=== PATIENT | female | born 1955 | race Caucasian/White ===

== ENCOUNTER → 2017-02-18 | Outpatient (CLI) | payer OTHER ==
[2017-02-13 12:02] LABS: EST GLOM FILT AFRICAN AMERICAN > 60 ml/min
[~2017-02-18] MED LIST: GLYBURIDE5 MG PO; LANTUS100 U/ML SC; LISINOPRIL2.5 MG PO; METFORMIN500 MG PO; MEVACOR10 MG PO; NAPROSYN500 MG PO; NEURONTIN100 MG PO; NORCO 325 MG-51 TAB PO; NOVOLOG 70/30 M10 ML SC; PERCOCET 325 MG1 TA2 PO; REQUIP1 MG PO; XANAX0.25 MG PO; ZOLOFT50 MG PO
== END | disposition home or self-care (01) ==
LOC: LAB 02-13 11:00 → MRI 02-13 11:00 → LAB 02-13 11:29
PROVIDERS: Internal Medicine
DX: I10 Essential (primary) hypertension (principal); H54.62 Unqualified visual loss, left eye, normal vision right eye; I65.21 Occlusion and stenosis of right carotid artery; M48.02 Spinal stenosis, cervical region

== ENCOUNTER → 2017-05-28 | Outpatient (CLI) | payer OTHER | END | disposition home or self-care (01) | LOC: US 08:04 | DX: R10.13 Epigastric pain (principal) ==

== ENCOUNTER → 2017-06-04 | Outpatient (CLI) | payer OTHER | END | disposition home or self-care (01) | LOC: NM 02:24 | DX: R10.13 Epigastric pain (principal); R14.0 Abdominal distension (gaseous); R11.2 Nausea with vomiting, unspecified; G24.9 Dystonia, unspecified ==

== ENCOUNTER → 2017-07-23 | Outpatient (CLI) | payer OTHER | END | disposition home or self-care (01) | LOC: LAB 08:01 | DX: D68.52 Prothrombin gene mutation (principal) ==

== ENCOUNTER → 2017-11-19 | Outpatient (CLI) | payer OTHER | END | disposition home or self-care (01) | LOC: MRI 12:01 | DX: S83.242D Other tear of medial meniscus, current injury, left knee, subsequent encounter (principal); M94.262 Chondromalacia, left knee; M12.862 Other specific arthropathies, not elsewhere classified, left knee; M25.462 Effusion, left knee; X58.XXXD Exposure to other specified factors, subsequent encounter ==

== ENCOUNTER → 2017-11-20 | Outpatient (CLI) | payer OTHER | END | disposition home or self-care (01) | LOC: RAD 01:22 → MAMMO 14:20 | DX: Z12.31 Encounter for screening mammogram for malignant neoplasm of breast (principal); Z13.820 Encounter for screening for osteoporosis; N95.9 Unspecified menopausal and perimenopausal disorder ==

== ENCOUNTER → 2017-12-31 | Outpatient (CLI) | payer OTHER | END | disposition home or self-care (01) | LOC: ORTHO 02:13 | DX: M17.12 Unilateral primary osteoarthritis, left knee (principal) ==

== ENCOUNTER → 2018-01-22 | Outpatient (CLI) | payer OTHER ==
[~2018-01-22] MED LIST changes: +ELIQUIS5 M1 PO; +GLUCOTROL10 MG PO; +IMDUR SA30 MG PO; +LEXAPRO20 MG PO; +LOPID600 M1 PO; +NATURE'S BLEND F1 MG PO; +NORVASC5 MG PO; +OS-CAL 500+D31 EAC1 PO; -REQUIP1 MG PO; +REQUIP3 M1 PO; +RESTORIL30 M1 PO; +[UNRECOGNIZED DRUG - OTHER] SC
[2018-01-22 11:23] LABS: BASO # 0.1 10*3/uL (0.0-0.1); EOS # 0.3 10*3/uL (0.0-0.4); EOS % 2.7 % (1.0-4.0); HEMATOCRIT 48.3 % (37.0-47.0); HEMOGLOBIN 15.7 g/dl (12.0-16.0); LYMPH # 3.2 10*3/uL (1.3-4.4); MEAN CELL VOLUME 92.9 fl (81.0-99.0); MEAN CORPUSCULAR HGB 30.2 pg (27.0-31.0); MEAN CORPUSCULAR HGB CONC 32.5 g/dl (33.0-37.0); MONO % 8.7 % (3.0-9.0); NEUT # 6.7 10*3/uL (2.3-7.9); NEUT % 59.1 % (47.0-73.0); PLATELET COUNT AUTOMATED 314 10*3/uL (130-400); RED CELL DISTRI WIDTH 14.7 % (0-14.5); WHITE BLOOD COUNT 11.3 10*3/uL (4.8-10.8)
[2018-01-22 11:28] LABS: BILIRUBIN NEGATIVE (NEGATIVE); BLOOD NEGATIVE (NEGATIVE); CLARITY CLEAR (CLEAR); COLOR YELLOW (YELLOW); GLUCOSE NEGATIVE (NEGATIVE); KETONE NEGATIVE (NEGATIVE); LEUKO ESTERASE 2+ (NEGATIVE); NITRITE NEGATIVE (NEGATIVE); PH 6.5 (5.0-9.0); SPECIFIC GRAVITY <= 1.005 (1.005-1.030); UROBILINOGEN 0.2 E.U./dl (0.2-1.0)
[2018-01-22 11:41] LABS: ALBUMIN 4.3 gm/dl (3.1-4.5); ALKALINE PHOSPHATASE 105 U/L (45-117); BUN 8 mg/dl (7-24); CHLORIDE 106 mmol/L (98-107); CREATININE 0.85 mg/dL (0.55-1.02); POTASSIUM 4.3 mmol/L (3.5-5.1); SGOT/AST 10 IU/L (3-35); SGPT/ALT 23 U/L (12-78); SODIUM 139 mmol/L (136-145)
[2018-01-22 11:48] LABS: BACTERIA 1+; EPITHELIAL CELLS TNTC; WBC TNTC wbc/hpf (0-5); YEAST TRACE
== END | disposition home or self-care (01) ==
LOC: LAB 09:02
PROVIDERS: Orthopaedic Surgery
DX: Z01.818 Encounter for other preprocedural examination (principal); S83.242A Other tear of medial meniscus, current injury, left knee, initial encounter; R05 Cough; R09.89 Other specified symptoms and signs involving the circulatory and respiratory systems; E11.9 Type 2 diabetes mellitus without complications; I10 Essential (primary) hypertension; F17.200 Nicotine dependence, unspecified, uncomplicated; X58.XXXA Exposure to other specified factors, initial encounter; Y93.89 Activity, other specified; Y92.89 Other specified places as the place of occurrence of the external cause; Y99.8 Other external cause status

== ENCOUNTER → 2018-01-29 | Day surgery (SDC) | payer OTHER ==
[~2018-01-29] VITALS: Ht 170.1 cm; Wt 78.0 kg
[~2018-01-29] MED LIST changes: +PERCOCET 5-3251 EACH PO; +ZOFRAN4 MG PO
[2018-01-29 07:25] VITALS: BP 120/60
[2018-01-29 08:55] VITALS: BP 134/71
[2018-01-29 09:07] VITALS: BP 146/59
[2018-01-29 09:25] VITALS: BP 126/59
[2018-01-29 09:40] VITALS: BP 113/37
[2018-01-29 09:55] VITALS: BP 146/70
== END | disposition home or self-care (01) ==
LOC: SDC 01-22 09:30
DX: S83.282A Other tear of lateral meniscus, current injury, left knee, initial encounter (principal); S83.242A Other tear of medial meniscus, current injury, left knee, initial encounter; F17.210 Nicotine dependence, cigarettes, uncomplicated; M67.52 Plica syndrome, left knee; M22.42 Chondromalacia patellae, left knee; F41.9 Anxiety disorder, unspecified; F32.9 Major depressive disorder, single episode, unspecified; M19.90 Unspecified osteoarthritis, unspecified site; I10 Essential (primary) hypertension; E11.9 Type 2 diabetes mellitus without complications; Z98.51 Tubal ligation status; X58.XXXA Exposure to other specified factors, initial encounter; Y93.89 Activity, other specified; Y92.89 Other specified places as the place of occurrence of the external cause; Y99.8 Other external cause status

== ENCOUNTER → 2018-02-27 | Outpatient (CLI) | payer OTHER | END | disposition home or self-care (01) | LOC: ORTHO 02:00 → RAD 09:00 → ORTHO 16:28 | DX: M19.032 Primary osteoarthritis, left wrist (principal); M19.031 Primary osteoarthritis, right wrist; M47.892 Other spondylosis, cervical region ==

== ENCOUNTER → 2018-06-16 | Outpatient (CLI) | payer OTHER, MEDICAID ==
[2018-06-16 10:52] LABS: HEMATOCRIT 49.1 % (37.0-47.0); HEMOGLOBIN 15.8 g/dl (12.0-16.0); MEAN CELL VOLUME 94.8 fl (81.0-99.0); MEAN CORPUSCULAR HGB 30.5 pg (27.0-31.0); MEAN CORPUSCULAR HGB CONC 32.2 g/dl (33.0-37.0); RED BLOOD COUNT 5.18 10*6/uL (4.10-5.10); RED CELL DISTRI WIDTH 14.3 % (0-14.5); WHITE BLOOD COUNT 8.8 10*3/uL (4.8-10.8)
[2018-06-16 11:26] LABS: ALBUMIN 4.3 gm/dl (3.1-4.5); BUN 16 mg/dl (7-24); CHLORIDE 107 mmol/L (98-107); CHOLESTEROL 253 mg/dL (<200); CREATININE 0.83 mg/dL (0.55-1.02); POTASSIUM 4.7 mmol/L (3.5-5.1); SGOT/AST 5 IU/L (3-35); SGPT/ALT 22 U/L (12-78); SODIUM 143 mmol/L (136-145); TOTAL PROTEIN 8.3 gm/dL (6.4-8.2); TRIGLYCERIDES 164 mg/dl (<150); VLDL CHOLESTEROL 33 mg/dL (6-40)
[2018-06-16 11:33] LABS: ALKALINE PHOSPHATASE 105 U/L (45-117); FREE T4 0.86 ng/dl (0.76-1.46); HDL CHOLESTEROL 43 mg/dl (40-60); LDL CHOLESTEROL 177 mg/dL (9-159)
[2018-06-16 13:34] LABS: VITAMIN D, 25-HYDROXY 18.1 ng/mL (30-100)
== END | disposition home or self-care (01) ==
LOC: LAB 09:22
PROVIDERS: Internal Medicine
DX: Z13.21 Encounter for screening for nutritional disorder (principal); Z13.1 Encounter for screening for diabetes mellitus; E11.9 Type 2 diabetes mellitus without complications; R79.89 Other specified abnormal findings of blood chemistry; E78.2 Mixed hyperlipidemia; E55.9 Vitamin D deficiency, unspecified; R53.81 Other malaise

== ENCOUNTER 2018-12-10 11:34 | Inpatient (IN) | payer MEDICARE ==
[~2018-12-10] VITALS: Ht 170.1 cm; Wt 84.9 kg
--- NOTE | ~2018-12-10 | WRIGHTHP ---
[place], [place] PATIENT HISTORY AND PHYSICAL EXAM [id number] UNIT #: [id number] ROOM: 415 DOCTOR: VLADIMIR FINNEGAN MD BIRTHDATE: [birth year] DOS: 12/10/2018 HISTORY OF PRESENT ILLNESS: This patient is 63 years old. The patient is very well known to us. She was in the office today for routine appointment. The patient states that she has had some discomfort in the chest when she woke up. It is almost like a bubble in her chest mostly in the midsternal area. She says that if she burps she feels that the discomfort could go away. She has not had any reflux symptoms. She has not had any heartburn. She has not had any shortness of breath, any fever or chills or cough. PAST MEDICAL HISTORY: Significant for: 1. Type 2 diabetes mellitus, poorly controlled. 2. Benign hypertension. 3. Peripheral neuropathy with chronic pain. 4. Spinal stenosis of lumbar. 5. Primary insomnia. 6. Mixed hyperlipidemia. MEDICATIONS: She is on glipizide 10 mg daily, Toujeo 65 daily, Lexapro 20 daily, Nexium 40 daily, Lopid 600 b.i.d., [place] 7.5 twice a day, lisinopril 20 mg daily, Lyrica 75 b.i.d., Requip 3 mg at bedtime, temazepam 30 at bedtime. SOCIAL HISTORY: Quit smoking 2 weeks ago. Denies using any alcohol. PHYSICAL EXAMINATION: GENERAL: She is awake and alert and oriented. VITAL SIGNS: Graphic trend shows a pressure of 147/85, pulse of 90, respirations 20, temperature 98.2. LUNGS: Diminished breath sounds, clear. HEART: Regular. ABDOMEN: Obese, soft, nontender. No rebound tenderness noted over the chest wall. EXTREMITIES: Without any edema. LABORATORY DATA: EKG showed minimal ST elevation in the septal leads. This was done in the office. ASSESSMENT AND PLAN: 1. Precordial chest pain be in a patient with risk factors including smoking, type 2 diabetes mellitus, poorly controlled and hypertension. Because of the EKG changes, the patient will be admitted to rule out myocardial infarction protocol, will be ordered Lovenox has been added along with a consultation with Cardiology and echocardiogram. Troponins come back negative. The patient will be scheduled for a stress test. 2. Benign hypertension, controlled. 3. Type 2 diabetes mellitus, poorly controlled. Continue home medications. [place], [place] PATIENT HISTORY AND PHYSICAL EXAM NAME: STONE BARNETT UNIT #: [id number] ROOM: [facility] DOCTOR: VLADIMIR FINNEGAN MD BIRTHDATE: [birth year] VLADIMIR FINNEGAN MD CM:HISPHYS:PATIENT HISTORY AND PHYSICAL EXAMINATION 1421 1432 VLADIMIR FINNEGAN MD 12/10/18 1433 interface
--- NOTE | ~2018-12-10 | EKG ---
[place], [place] ELECTROCARDIOGRAM REPORT NAME: STONE BARNETT UNIT #: [id number] ROOM: 415 DOCTOR: EPIPHANY DRAFT REPORT BIRTHDATE: [birth year] [facility] Test Date: 2018-12-11 Test Time: 06:48:25 Pat Name: STONE BARNETT Department: Room: 415 1 Gender: F Booking Clerk: Julissa Giraldo : 1955 Requested By: VLADIMIR FINNEGAN Order Number: [id number] Reading MD: Adin Sellers MD Measurements Intervals [place] Rate: 66 P: 3 MN: 154 QRS: -25 QRSD: 95 T: 100 QT: 389 QTc: 408 Interpretive Statements Sinus rhythm Borderline left axis deviation Abnormal R-wave progression, late transition Nonspecific T abnormalities, lateral leads Baseline wander in lead(s) V6 Compared to ECG 12/10/2018 13:03:34 No significant change Electronically Signed On 12-11-2018 19:32:40 PST by Adin Sellers MD CM:EKGRPT:ELECTROCARDIOGRAM REPORT 31 VLADIMIR FINNEGAN MD EPIPHANY DRAFT REPORT VLADIMIR FINNEGAN MD
--- NOTE | ~2018-12-10 | EKG ---
[place], [place] ELECTROCARDIOGRAM REPORT NAME: STONE BARNETT UNIT #: [id number] ROOM: 415 DOCTOR: MARY DRAFT REPORT BIRTHDATE: [birth year] [facility] Test Date: 2018-12-10 Test Time: 13:03:34 Pat Name: STONE BARNETT Department: Room: 415 1 Gender: F Post Secondary Professional: Julissa Giraldo : 1955 Requested By: VLADIMIR FINNEGAN Order Number: [id number] Reading MD: Adin Sellers MD Measurements Intervals [place] Rate: 75 P: 48 TX: 148 QRS: -30 QRSD: 95 T: 81 QT: 367 QTc: 410 Interpretive Statements Sinus rhythm Abnormal R-wave progression, late transition Baseline wander in lead(s) V4 No previous ECG available for comparison Electronically Signed On 12-10-2018 18:03:29 PST by Adin Sellers MD CM:EKGRPT:ELECTROCARDIOGRAM REPORT 1303 1803 VLADIMIR FINNEGAN MD EPIPHBETO DRAFT REPORT VLADIMIR FINNEGAN MD
--- NOTE | ~2018-12-10 | PR ---
[place], [place] PROGRESS NOTE NAME: STONE BARNETT UNIT #: [id number] ROOM: 415 DOCTOR: VLADIMIR FINNEGAN MD BIRTHDATE: [birth year] DOS: 12/11/2018 SUBJECTIVE: The patient is doing well and her discomfort that she had in her midsternal area seems to be a little bit better. OBJECTIVE: VITAL SIGNS: Graphic trend shows a pressure 131/60, pulse of 70, respirations 18, temperature 97.9. LUNGS: Diminished breath sounds, clear. HEART: Regular. ABDOMEN: Obese, soft. EXTREMITIES: Without any edema. ASSESSMENT AND PLAN: 1. Precordial chest pain, ruled out for myocardial infarction. Awaiting stress test. 2. Abnormal EKG with some nonspecific ST-T changes in the septal leads, again ruled out for myocardial infarction. Awaiting the stress test. If the stress is negative, plan is to discharge. 3. Type 2 diabetes mellitus, not very well controlled as an outpatient. Blood sugars 87 here. 4. For her Mixed hyperlipidemia, on lipid lowering medications, which is to be continued. LVADIMIR FINNEGAN MD CM:PNTRANS 0921 1055 VLADIMIR FINNEGAN MD 12/11/18 1055 interface
--- NOTE | ~2018-12-10 | CON ---
[place], [place] REPORT OF CONSULTATION NAME: STONE BARNETT UNIT #: [id number] ROOM: 415 DOCTOR: CHARANJIT FINCH MD BIRTHDATE: [birth year] DOS: HISTORY OF PRESENT ILLNESS: This is a 63-year-old -[place] woman with a history of coronary artery disease. She tells me that Dr. Hardwick had done a heart catheterization on her and was told that she had re-outed one of her vessels presumably occlusion with collaterals. She has longstanding diabetes mellitus type 2, not adequately controlled; essential hypertension; peripheral neuropathy from diabetes mellitus; spinal stenosis of the lumbar spine and also mixed dyslipidemia and smokes 3 packs a week. She has never had a stroke, heart failure, rhythm disorder of the heart. She does have GERD, but no bleeding ulcers. She has never had any kidney problems. Father of brain tumor and mother had some heart problems. She came to the Emergency Department because of 2-3 weeks of lower retrosternal chest pain that would go around the right side into the back. When it came, it had lasted all day and almost occurred on a daily basis with accompanying shortness of breath, but no radiation up into the shoulder or the neck. She did not have any worsening of the symptoms with exertion and no PND, orthopnea, or swelling of the lower extremities. HOME MEDICATIONS: Included apixaban 5 mg b.i.d., amlodipine 5 mg daily, gemfibrozil 600 mg b.i.d., glipizide 10 mg daily, [place] 7.5/325 mg b.i.d., glipizide 10 mg daily, esomeprazole 40 mg daily, escitalopram (Lexapro) 20 mg daily, calcium carbonate, Requip 3 mg at night, temazepam 30 mg at bedtime and also Toujeo 40 units subcutaneous, and insulin lispro. PHYSICAL EXAMINATION: GENERAL: This reveals a patient who is moderately obese. She is pleasant, alert, oriented. She is not in any distress. There is no cyanosis or jaundice. There is no thyromegaly or finger clubbing. VITAL SIGNS: Pulse is regular at 76 beats per minute, blood pressure 147/85. NECK: Normal JVP. No bruit in the neck. HEART: There is no cardiomegaly, no murmurs are present. EXTREMITIES: She had good dorsalis pedis pulses and no edema in the lower extremity. RESPIRATORY: Breath sounds are fairly decent bilaterally with a few adventitious sounds in the left lower zone. Percussion note was normal. ABDOMEN: No bruit. Normal bowel sounds. There is no organomegaly or pulsatile mass. DIAGNOSTIC STUDIES: ECG showed normal sinus rhythm with T-wave inversion in 1 and aVL. Troponin I levels have been normal. IMPRESSION: This patient with multiple risk factors for known coronary artery disease, has symptoms that are somewhat atypical for myocardial ischemia. She has ruled out for acute myocardial infarction and a Lexiscan Cardiolite study is being performed by Dr. Sellers and I will look at her. I will review her angiographic findings at [facility] and if there is abnormality on the nuclear study and it correlates with a previous angiographic [place], [place] REPORT OF CONSULTATION NAME: STONE BARNETT UNIT #: [id number] ROOM: 415 DOCTOR: CHARANJIT FINCH MD BIRTHDATE: [birth year] finding, then she may not require any further workup. I thank you on behalf of Dr. Hardwick for this consult. CHARANJIT FINCH MD CM:CONSTR:REPORT OF CONSULTATION 1050 12/12/18 0915 interface GERMAN HARDWICK MD
[~2018-12-10 11:34] MED LIST changes: -NORCO 325 MG-51 TAB PO; +NORCO 5-325 TA1 EACH PO; +TOUJEO SC; -[UNRECOGNIZED DRUG - OTHER] SC
[2018-12-10 12:10] VITALS: BP 147/85
--- NOTE | 2018-12-10 12:10 | NUR ---
A 63, admitted to , under the services of VLADIMIR Rosenthal MD with a diagnosis of CHEST PAIN EKG CHANGES. Chief complaint is CHEST PAIN. Patient arrived via wheel chair from [place]. Monitor applied. Initial assessment completed. Vital signs taken and recorded. VLADIMIR ROSENTHAL MD notified of admission to the unit. Orders received. See assessment for past medical history, medications and allergies. Patient and/or family oriented to unit. [address] visitation policy reviewed. Clothing/patient valuable form completed. MIKE BROOKE
[2018-12-10] MEDS ORDERED: LYRICA75 M1 PO (12:33)
[2018-12-10] MEDS ORDERED: NEXIUM40 MG PO (12:34)
[2018-12-10] MEDS ORDERED: HUMALOG100 UNIT/1 SQ (12:39)
[2018-12-10] MEDS ORDERED: NORCO 7.5-3251 EACH PO (12:41)
--- NOTE | 2018-12-10 14:23 | NUR ---
DR ROMAN NOTIFIED OF CONSULT.
[2018-12-10 14:43] LABS: BASO # 0.1 10*3/uL (0.0-0.1); EOS # 0.4 10*3/uL (0.0-0.4); EOS % 4.3 % (1.0-4.0); HEMATOCRIT 44.8 % (37.0-47.0); LYMPH # 3.5 10*3/uL (1.3-4.4); LYMPH % 37.8 % (27.0-41.0); MEAN CELL VOLUME 91.8 fl (81.0-99.0); MEAN CORPUSCULAR HGB 30.7 pg (27.0-31.0); MEAN CORPUSCULAR HGB CONC 33.5 g/dl (33.0-37.0); MEAN PLATELET VOLUME 10.1 fl (9.6-12.3); MONO # 0.7 10*3/uL (0.1-1.0); MONO % 7.8 % (3.0-9.0); NEUT # 4.5 10*3/uL (2.3-7.9); NEUT % 48.8 % (47.0-73.0); PLATELET COUNT AUTOMATED 281 10*3/uL (130-400); RED BLOOD COUNT 4.88 10*6/uL (4.10-5.10); RED CELL DISTRI WIDTH 13.7 % (0-14.5); WHITE BLOOD COUNT 9.2 10*3/uL (4.8-10.8)
[2018-12-10 14:59] LABS: ALBUMIN 3.4 gm/dl (3.1-4.5); ALKALINE PHOSPHATASE 92 U/L (45-117); BUN 14 mg/dl (7-24); CHLORIDE 106 mmol/L (98-107); CREATININE 0.84 mg/dL (0.55-1.02); POTASSIUM 4.1 mmol/L (3.5-5.1); SGOT/AST 9 IU/L (3-35); SGPT/ALT 24 U/L (12-78); SODIUM 141 mmol/L (136-145)
[2018-12-10] MEDS ORDERED: NORVASC5 MG PO (15:00)
[2018-12-10] MEDS ORDERED: ELIQUIS5 M1 PO (15:00)
[2018-12-10 16:00] VITALS: BP 157/73
[2018-12-10 20:00] VITALS: BP 158/61
--- NOTE | 2018-12-10 22:00 | NUR ---
PT BLOOD SUGAR OBTAINED, 288. 8 UNITS OF COVERAGE GIVEN PER ORDER. PT ALERT ORIENTED AND PLEASANT WITH STAFF. ALL OTHER HS MEDICATIONS GIVEN. NO COMPLAINTS VOICED BY PT AT THIS TIME. ASSESSMENT COMPLETE. PT AWARE THAT SHE IS NPO AT MIDNIGHT FOR SCHEDULED STRESS TEST IN AM. WILL CONTINUE TO MONITOR. CALL LIGHT IN REACH.
[2018-12-11] VITALS: BP 131/61
[2018-12-11 06:54] LABS: CHOLESTEROL 242 mg/dL (<200); HDL CHOLESTEROL 32 mg/dl (40-60); LDL CHOLESTEROL 163 mg/dL (9-159); TRIGLYCERIDES 237 mg/dl (<150); VLDL CHOLESTEROL 47 mg/dL (6-40)
--- NOTE | 2018-12-11 08:26 | NUR ---
DR FINNEGAN CALLED IN, UNABLE TO COME AND DO STRESS TEST TODAY. REQUESTED FABRIZIO TO COVER.
--- NOTE | 2018-12-11 09:00 | NUR ---
[employer] Operator in to talk to patient. Patient states lives at home with her boyfriend staying with her Friday through Friday and her friend staying with her on Mondays. There are 12 steps in the home. Physician: Dr. Gabby Breaux Pharmacy: [facility] Home health services: none Patient's level of ADLs: INDEPENDENT Patient has working utilities: yes DME: none Follow-up physician's appointment after d/c: she prefers to make her own follow up appt after discharge Does patient want to access PORTAL?: no Discharge plan discussed with patient. She lives at home with her boyfriend staying with her Friday through Friday and her friend staying with her on Mondays. She is independent in her ADLs and ambulation. Discussed home health care services and she denies any home needs at this time. When medically stable she will be discharged to home. LIAM GARCIA
--- NOTE | 2018-12-11 10:46 | NUR ---
PT OFF FLOOR FOR STRESS TEST.
--- NOTE | 2018-12-11 11:45 | NUR ---
INFORMED CONSENT OBTAINED FOR LEXISCAN NUCLEAR STRESS TEST WITH DR. YA. RESTING EKG NSR WITH A RESTING HR OF 61 WITH BP OF 152/68. LUNGS CLEAR WITH DIMINISHED BS. SPO2 OF 96% ON ROOM AIR. PT COMPLETED A 1:00 LEXISCAN PROTOCOL RECEIVING LEXISCAN 0.4 MG IV OVER 10 SECONDS. HAD NO CHEST PAIN OR ANY EKG CHANGES. HAD C/O HEADACHE THAT WAS RELIEVED IN RECOVERY. HAD A PEAK HR OF 107 WITH BP OF 140/62. LAST RECOVERY HR OF 92 WITH BP OF 144/68. AWAITING SCANNING IN STABLE CONDITION.
[2018-12-11 16:00] VITALS: BP 131/63
--- NOTE | 2018-12-11 18:28 | NUR ---
[facility] Discharge instructions reviewed with patient/family. Patient receptive and verbalizes understanding. Follow-up care arranged. Written instructions given to patient/family. RAVI DODSON
[2019-02-26] MEDS ORDERED: TOPROL XL25 MG PO (01:40)
== END 2018-12-11 18:28 | disposition home or self-care (01) | DRG 313 ==
LOC: 5E 11:34 → 4E 11:34
PROVIDERS: ADMIT Internal Medicine
PROC: 3E073KZ Introduction of Other Diagnostic Substance into Coronary Artery, Percutaneous Approach (ICD-10-PCS; principal; 2018-12-11)
PROC: 4A02XM4 Measurement of Cardiac Total Activity, External Approach (ICD-10-PCS; principal; 2018-12-11)
DX: R07.2 Precordial pain (principal); I10 Essential (primary) hypertension; E11.65 Type 2 diabetes mellitus with hyperglycemia; M48.061 Spinal stenosis, lumbar region without neurogenic claudication; E78.2 Mixed hyperlipidemia; E11.42 Type 2 diabetes mellitus with diabetic polyneuropathy; G89.29 Other chronic pain; I25.10 Atherosclerotic heart disease of native coronary artery without angina pectoris; F17.210 Nicotine dependence, cigarettes, uncomplicated; K21.9 Gastro-esophageal reflux disease without esophagitis; Z82.49 Family history of ischemic heart disease and other diseases of the circulatory system; Z80.8 Family history of malignant neoplasm of other organs or systems

== ENCOUNTER 2019-02-25 10:10 | Emergency (ER) | payer MEDICARE ==
[~2019-02-25] VITALS: Ht 170.1 cm; Wt 85.7 kg
[~2019-02-25 10:10] MED LIST changes: +HUMALOG100 UNIT/1 SQ; +LYRICA75 M1 PO; +NEXIUM40 MG PO; +NORCO 7.5-3251 EACH PO
[2019-02-25] MEDS ORDERED: VENTOLIN 02.5 MG/3 M INH (12:45)
[2019-02-25] MEDS ORDERED: ZITHROMAX250 MG PO (12:45)
[2019-02-26] MEDS ORDERED: TOPROL XL25 MG PO (01:40)
== END 2019-02-25 12:54 | disposition home or self-care (01) ==
LOC: ED 10:10
DX: J18.1 Lobar pneumonia, unspecified organism (principal); E11.9 Type 2 diabetes mellitus without complications; F17.200 Nicotine dependence, unspecified, uncomplicated; Z98.51 Tubal ligation status; Z79.899 Other long term (current) drug therapy; Z79.4 Long term (current) use of insulin

== ENCOUNTER → 2019-05-19 | Outpatient (CLI) | payer MEDICARE ==
[~2019-05-19] MED LIST changes: +ASPIRIN CHEWABL81 MG PO; +CEFUROXIME AXE250 MG PO; +Ipratropium Brom3 ML NEB; +JARDIANCE10 MG PO; +PREDNISONE5 MG PO; +TOPROL XL25 MG PO; +TOUJEO SOL300 UNIT/1 SQ; +VENTOLIN 02.5 MG/3 M INH; +ZITHROMAX250 MG PO
== END | disposition home or self-care (01) ==
LOC: ORTHO 01:23
DX: M17.12 Unilateral primary osteoarthritis, left knee (principal); M94.262 Chondromalacia, left knee; M25.462 Effusion, left knee; M79.89 Other specified soft tissue disorders; Z91.81 History of falling

== ENCOUNTER → 2019-06-01 | Outpatient (CLI) | payer MEDICARE | END | disposition home or self-care (01) | LOC: RAD 08:15 | DX: M25.552 Pain in left hip (principal) ==

== ENCOUNTER 2019-08-02 09:58 | Emergency (ER) | payer MEDICARE ==
[~2019-08-02] VITALS: Ht 170.1 cm; Wt 83.9 kg
[2019-08-02] MEDS ORDERED: IBU800 MG PO (12:33)
== END 2019-08-02 12:25 | disposition home or self-care (01) ==
LOC: ED 09:58
DX: M79.602 Pain in left arm (principal); M79.632 Pain in left forearm; M25.512 Pain in left shoulder; I10 Essential (primary) hypertension; E11.9 Type 2 diabetes mellitus without complications; F17.200 Nicotine dependence, unspecified, uncomplicated; D68.51 Activated protein C resistance; Z98.51 Tubal ligation status; Z98.890 Other specified postprocedural states; Z79.82 Long term (current) use of aspirin; Z79.4 Long term (current) use of insulin; Z79.899 Other long term (current) drug therapy; X50.1XXA Overexertion from prolonged static or awkward postures, initial encounter; Y93.89 Activity, other specified; Y92.89 Other specified places as the place of occurrence of the external cause; Y99.9 Unspecified external cause status

== ENCOUNTER → 2019-08-18 | Outpatient (CLI) | payer MEDICARE ==
[~2019-08-18] MED LIST changes: +IBU800 MG PO
== END | disposition home or self-care (01) ==
LOC: MRI 08:33
DX: M19.022 Primary osteoarthritis, left elbow (principal)

== ENCOUNTER → 2019-08-25 | Outpatient (CLI) | payer MEDICARE | END | disposition home or self-care (01) | LOC: ORTHO 01:31 → LAB 01:31 → ORTHO 16:19 | DX: E87.6 Hypokalemia (principal) ==

== ENCOUNTER → 2019-09-28 | Day surgery (SDC) | payer MEDICARE ==
[2019-09-28 10:17] LABS: ACT PARTIAL THROMBO TIME 26.7 SECONDS (20.0-32.1); INTERNATIONAL NORM RATIO 0.9 (2.0-3.5)
== END | disposition home or self-care (01) ==
LOC: SDC 09-21 10:00 → CT 09-21 10:00 → SDC 09-22 11:00 → LAB 03:20 → SDC 03:20
PROVIDERS: Orthopaedic Surgery
DX: M25.812 Other specified joint disorders, left shoulder (principal)

== ENCOUNTER → 2019-11-05 | Day surgery (SDC) | payer MEDICARE ==
[2019-11-05 09:14] LABS: ACT PARTIAL THROMBO TIME 24.2 SECONDS (20.0-32.1); INTERNATIONAL NORM RATIO 0.9 (2.0-3.5)
== END | disposition home or self-care (01) ==
PROVIDERS: Orthopaedic Surgery
DX: S43.432A Superior glenoid labrum lesion of left shoulder, initial encounter (principal); X58.XXXA Exposure to other specified factors, initial encounter; Y93.89 Activity, other specified; Y92.89 Other specified places as the place of occurrence of the external cause; Y99.8 Other external cause status

== ENCOUNTER → 2020-03-28 | Outpatient (CLI) | payer MEDICARE ==
[2020-03-28 13:00] LABS: BASO # 0.1 10*3/uL (0.0-0.1); EOS # 0.3 10*3/uL (0.0-0.4); EOS % 2.8 % (1.0-4.0); HEMATOCRIT 47.7 % (37.0-47.0); LYMPH # 3.4 10*3/uL (1.3-4.4); LYMPH % 27.3 % (27.0-41.0); MEAN CELL VOLUME 89.2 fl (81.0-99.0); MEAN CORPUSCULAR HGB 30.7 pg (27.0-31.0); MEAN CORPUSCULAR HGB CONC 34.4 g/dl (33.0-37.0); MEAN PLATELET VOLUME 10.2 fl (9.6-12.3); MONO # 0.9 10*3/uL (0.1-1.0); MONO % 7.1 % (3.0-9.0); NEUT # 7.5 10*3/uL (2.3-7.9); NEUT % 60.9 % (47.0-73.0); PLATELET COUNT AUTOMATED 340 10*3/uL (130-400); RED BLOOD COUNT 5.35 10*6/uL (4.10-5.10); RED CELL DISTRI WIDTH 14.7 % (0-14.5); WHITE BLOOD COUNT 12.3 10*3/uL (4.8-10.8)
[2020-03-28 13:28] LABS: ALBUMIN 3.6 gm/dl (3.1-4.5); ALKALINE PHOSPHATASE 134 U/L (45-117); BUN 15 mg/dl (7-24); CHLORIDE 106 mmol/L (98-107); CHOLESTEROL 245 mg/dL (<200); CREATININE 0.88 mg/dL (0.55-1.02); HDL CHOLESTEROL 39 mg/dl (40-60); LDL CHOLESTEROL 151 mg/dL (9-159); POTASSIUM 4.1 mmol/L (3.5-5.1); SGPT/ALT 26 U/L (12-78); SODIUM 136 mmol/L (136-145); TRIGLYCERIDES 276 mg/dl (<150); VLDL CHOLESTEROL 55 mg/dL (6-40)
[2020-03-28 13:33] LABS: THYROID STIM HORMONE (HS) 0.933 uIU/ml (0.358-4.75)
[2020-03-28 13:35] LABS: SGOT/AST < 3 IU/L (3-35); VITAMIN D, 25-HYDROXY 18.5 ng/mL (30-100)
== END | disposition home or self-care (01) ==
LOC: LAB 12:25
PROVIDERS: Internal Medicine
DX: Z00.00 Encounter for general adult medical examination without abnormal findings (principal); I10 Essential (primary) hypertension; E78.2 Mixed hyperlipidemia; E11.9 Type 2 diabetes mellitus without complications; E55.9 Vitamin D deficiency, unspecified

== ENCOUNTER → 2020-09-21 | Outpatient (CLI) | payer MEDICARE ==
[~2020-09-21] MED LIST changes: +ATORVASTATIN CA80 M1 PO; +DECADRON6 M1 PO; +FARXIGA5 M1 PO; +LOSARTAN POTASS25 M1 PO
[2020-09-21 12:52] LABS: BASO # 0.1 10*3/uL (0.0-0.1); BASO % 1.8 % (0.0-1.0); EOS # 0.7 10*3/uL (0.0-0.4); EOS % 8.5 % (1.0-4.0); HEMATOCRIT 47.1 % (37.0-47.0); LYMPH % 38.2 % (27.0-41.0); MEAN CELL VOLUME 87.7 fl (81.0-99.0); MEAN CORPUSCULAR HGB 29.4 pg (27.0-31.0); MEAN CORPUSCULAR HGB CONC 33.5 g/dl (33.0-37.0); MONO # 0.5 10*3/uL (0.1-1.0); NEUT # 3.4 10*3/uL (2.3-7.9); NEUT % 44.2 % (47.0-73.0); PLATELET COUNT AUTOMATED 328 10*3/uL (130-400); RED BLOOD COUNT 5.37 10*6/uL (4.10-5.10); RED CELL DISTRI WIDTH 14.7 % (0-14.5); WHITE BLOOD COUNT 7.7 10*3/uL (4.8-10.8)
[2020-09-21 13:25] LABS: ALBUMIN 3.7 gm/dl (3.1-4.5); BUN 12 mg/dl (7-24); CHLORIDE 110 mmol/L (98-107); CHOLESTEROL 271 mg/dL (<200); CREATININE 0.89 mg/dL (0.55-1.02); POTASSIUM 4.2 mmol/L (3.5-5.1); SGOT/AST 10 IU/L (3-35); SGPT/ALT 22 U/L (12-78); SODIUM 140 mmol/L (136-145); TOTAL PROTEIN 7.6 gm/dL (6.4-8.2); TRIGLYCERIDES 340 mg/dl (<150); VLDL CHOLESTEROL 68 mg/dL (6-40)
[2020-09-21 13:34] LABS: ALKALINE PHOSPHATASE 119 U/L (45-117); HDL CHOLESTEROL 36 mg/dl (40-60); LDL CHOLESTEROL 167 mg/dL (9-159)
[2020-09-21 13:49] LABS: VITAMIN D, 25-HYDROXY 33.1 ng/mL (30-100)
== END | disposition home or self-care (01) ==
LOC: LAB 12:13
PROVIDERS: ATTEND Internal Medicine
DX: E55.9 Vitamin D deficiency, unspecified (principal); E11.9 Type 2 diabetes mellitus without complications; G62.9 Polyneuropathy, unspecified

== ENCOUNTER 2020-11-04 12:15 | Inpatient (IN) | payer MEDICARE ==
[~2020-11-04] VITALS: Ht 170.1 cm; Wt 81.6 kg
[~2020-11-04 12:15] MED LIST changes: -ATORVASTATIN CA80 M1 PO; -DECADRON6 M1 PO; -FARXIGA5 M1 PO; -LOSARTAN POTASS25 M1 PO
[2020-11-04 12:20] VITALS: BP 147/113
[2020-11-04 12:46] VITALS: BP 148/100
[2020-11-04 13:06] LABS: BASO % 0.3 % (0.0-1.0); HEMATOCRIT 45.6 % (37.0-47.0); LYMPH # 1.2 10*3/uL (1.3-4.4); LYMPH % 12.6 % (27.0-41.0); MEAN CELL VOLUME 86.5 fl (81.0-99.0); MEAN CORPUSCULAR HGB 28.5 pg (27.0-31.0); MEAN CORPUSCULAR HGB CONC 32.9 g/dl (33.0-37.0); MEAN PLATELET VOLUME 9.8 fl (9.6-12.3); MONO # 0.6 10*3/uL (0.1-1.0); MONO % 5.9 % (3.0-9.0); NEUT # 7.7 10*3/uL (2.3-7.9); NEUT % 79.3 % (47.0-73.0); PLATELET COUNT AUTOMATED 324 10*3/uL (130-400); RED BLOOD COUNT 5.27 10*6/uL (4.10-5.10); RED CELL DISTRI WIDTH 15.9 % (0-14.5); WHITE BLOOD COUNT 9.7 10*3/uL (4.8-10.8)
[2020-11-04 13:14] LABS: ACT PARTIAL THROMBO TIME 24.9 SECONDS (20.0-32.1); INTERNATIONAL NORM RATIO 0.9 (2.0-3.5)
[2020-11-04 13:17] LABS: ALBUMIN 3.5 gm/dl (3.1-4.5); ALKALINE PHOSPHATASE 170 U/L (45-117); BUN 15 mg/dl (7-24); CREATININE 0.88 mg/dL (0.55-1.02); LIPASE 97 U/L (73-393); SGOT/AST 11 IU/L (3-35); SGPT/ALT 28 U/L (12-78); TOTAL PROTEIN 7.3 gm/dL (6.4-8.2)
[2020-11-04 13:25] LABS: CHLORIDE 106 mmol/L (98-107); SODIUM 136 mmol/L (136-145)
[2020-11-04 13:27] LABS: TROPONIN I 0.161 ng/ml (<0.045)
[2020-11-04 13:46] VITALS: BP 142/67
--- NOTE | 2020-11-04 14:21 | NUR ---
PT REMAINS W/O ACUTE DISTRESS NOTED AWAITING ALL RESULTS FOR ADDITIONAL PLAN OF CARE,CALL LIGHT WITHIN REACH.
[2020-11-04 15:37] VITALS: BP 140/67
[2020-11-04] MEDS ORDERED: LOSARTAN POTASS25 M1 PO (16:36)
[2020-11-04] MEDS ORDERED: FARXIGA5 M1 PO (16:37)
[2020-11-04] MEDS ORDERED: ATORVASTATIN CA80 M1 PO (16:46)
[2020-11-04 16:50] VITALS: BP 142/58
--- NOTE | 2020-11-04 16:51 | NUR ---
PT ORDERED DINNER TRAY AND WATCHING T.V. @ THIS TIME,CALL LIGHT WITHIN REACH.
--- NOTE | 2020-11-04 19:54 | NUR ---
WENT INTO ROOM AND ZITHROMAX WAS NOT DRIPPING DUE TO PT ARM BEING BENT. ADVISED PT TO CALL ME IN WHEN IV PUMP STARTS BEEPING. PT IS RESTING I NBED. NO SIGNS OF ACUTE DISTRESS NOTED AT THIS TIME.
[2020-11-04 19:55] VITALS: BP 142/67
--- NOTE | 2020-11-05 02:45 | NUR ---
PTT 34.3. HEPARIN DRIP INCREASED BY 2 UNITS PER HEPARIN PROTOCOL. PTT ORDERED FOR 0830.
[2020-11-05 04:00] VITALS: BP 150/70
--- NOTE | 2020-11-05 04:00 | NUR ---
PT IS SLEEPING IN ROOM. NO SIGNS OF ACUTE DISTRESS NOTED AT THIS TIME. WILL CONTINUE TO MONITOR.
[2020-11-05 06:03] LABS: BASO % 0.2 % (0.0-1.0); HEMATOCRIT 42.5 % (37.0-47.0); LYMPH # 2.2 10*3/uL (1.3-4.4); LYMPH % 24.9 % (27.0-41.0); MEAN CELL VOLUME 86.4 fl (81.0-99.0); MEAN CORPUSCULAR HGB 29.1 pg (27.0-31.0); MEAN CORPUSCULAR HGB CONC 33.6 g/dl (33.0-37.0); MEAN PLATELET VOLUME 10.5 fl (9.6-12.3); MONO # 0.7 10*3/uL (0.1-1.0); MONO % 7.7 % (3.0-9.0); NEUT # 5.6 10*3/uL (2.3-7.9); NEUT % 64.9 % (47.0-73.0); PLATELET COUNT AUTOMATED 312 10*3/uL (130-400); RED BLOOD COUNT 4.92 10*6/uL (4.10-5.10); RED CELL DISTRI WIDTH 15.6 % (0-14.5); WHITE BLOOD COUNT 8.7 10*3/uL (4.8-10.8)
[2020-11-05 06:15] VITALS: BP 152/74
--- NOTE | 2020-11-05 06:15 | NUR ---
PT RESTING IN BED WATCHING TV. VSS. WILL CONTINUE TO MONITOR.
[2020-11-05 06:27] LABS: ALBUMIN 3.1 gm/dl (3.1-4.5); BUN 16 mg/dl (7-24); CHLORIDE 109 mmol/L (98-107); CHOLESTEROL 181 mg/dL (<200); POTASSIUM 3.9 mmol/L (3.5-5.1); SGOT/AST 16 IU/L (3-35); SGPT/ALT 29 U/L (12-78); SODIUM 140 mmol/L (136-145); TRIGLYCERIDES 204 mg/dl (<150); VLDL CHOLESTEROL 41 mg/dL (6-40)
[2020-11-05 06:34] LABS: ALKALINE PHOSPHATASE 139 U/L (45-117); CREATININE 0.64 mg/dL (0.55-1.02); FREE T4 0.99 ng/dl (0.76-1.46); HDL CHOLESTEROL 41 mg/dl (40-60); LDH 236 U/L (84-246); LDL CHOLESTEROL 99 mg/dL (9-159); THYROID STIM HORMONE (HS) 0.161 uIU/ml (0.358-4.75); TOTAL PROTEIN 6.5 gm/dL (6.4-8.2)
[2020-11-05 06:53] LABS: ACT PARTIAL THROMBO TIME 33.6 SECONDS (20.0-32.1); INTERNATIONAL NORM RATIO 0.9 (2.0-3.5)
[2020-11-05 08:10] LABS: FERRITIN 200.9 ng/mL (10.0-291.0); VITAMIN D, 25-HYDROXY 36.3 ng/mL (30-100)
--- NOTE | 2020-11-05 12:28 | NUR ---
PT IN ROOM EATING LUNCH PT WITH OCCASIONAL HARSH COUGH PT SPEAKS IN FULL SENTENCES NSR RATE OF 79
[2020-11-05 12:43] VITALS: BP 174/87
--- NOTE | 2020-11-05 15:30 | NUR ---
PT IS IN ROOM. NO SIGNS OF ACUTE DISTRESS NOTED. SHE STATES THAT SHE IS FEELING IMPROVED AT THIS TIME.
--- NOTE | 2020-11-05 16:45 | NUR ---
ADMISSION ASSESSMENT DONE. PATIENT UNABLE TO VERIFY MEDICATIONS. MEDICATIONS ARE FILLED AT [facility].
[2020-11-05 17:30] VITALS: BP 167/70
--- NOTE | 2020-11-05 22:24 | NUR ---
PT IS SITTING ON EDGE OF BED. MEDICATED WITH PM MEDS PER PHYSICIAN ORDERS. NO SIGNS OF ACUTE DISTRESS AT THIS TIME. WILL CONTINUE TO MONITOR.
[2020-11-06 02:51] VITALS: BP 158/60
[2020-11-06 05:42] LABS: ALBUMIN 3.2 gm/dl (3.1-4.5); ALKALINE PHOSPHATASE 142 U/L (45-117); BUN 17 mg/dl (7-24); CHLORIDE 105 mmol/L (98-107); CREATININE 0.69 mg/dL (0.55-1.02); POTASSIUM 4.7 mmol/L (3.5-5.1); SGOT/AST 12 IU/L (3-35); SGPT/ALT 29 U/L (12-78); SODIUM 137 mmol/L (136-145); TOTAL PROTEIN 6.6 gm/dL (6.4-8.2)
[2020-11-06 06:26] LABS: BASO % 0.3 % (0.0-1.0); LYMPH % 21.4 % (27.0-41.0); MEAN CELL VOLUME 86.7 fl (81.0-99.0); MEAN CORPUSCULAR HGB 28.5 pg (27.0-31.0); MEAN CORPUSCULAR HGB CONC 32.9 g/dl (33.0-37.0); MEAN PLATELET VOLUME 10.6 fl (9.6-12.3); MONO # 0.8 10*3/uL (0.1-1.0); MONO % 9.1 % (3.0-9.0); NEUT # 6.1 10*3/uL (2.3-7.9); NEUT % 66.7 % (47.0-73.0); PLATELET COUNT AUTOMATED 320 10*3/uL (130-400); RED BLOOD COUNT 5.19 10*6/uL (4.10-5.10); RED CELL DISTRI WIDTH 15.5 % (0-14.5); WHITE BLOOD COUNT 9.1 10*3/uL (4.8-10.8)
[2020-11-06 08:00] VITALS: BP 152/75
--- NOTE | 2020-11-06 08:00 | NUR ---
PT A&OX3 DENIES CHEST PAIN OR "ANY WORSE SHORTNESS OF BREATH, I JUST WANT TO GO HOME"
--- NOTE | 2020-11-06 09:54 | NUR ---
NOTIFIED DR RESTREPO PT REFUSING TO GO UPSTAIRS, HE STATES HE WILL SEE HERE IN ER
--- NOTE | 2020-11-06 11:43 | NUR ---
BEDSIDE GLUCOSE CHECK REVEALED SUGAR OF 385. PT STATES SHE IS LEAVING AND DOES NOT WANT COVERAGE AT THIS TIME. DR RAHMANAR IN TO SEE PT AND STATES HE WILL BE DISCHARGING.
[2020-11-06] MEDS ORDERED: DECADRON6 M1 PO (13:08)
== END 2020-11-06 13:11 | disposition home or self-care (01) | DRG 871 ==
LOC: ED 12:15 → 4E 15:14 → EDHOLD 15:14 → 4E 11-06 09:18 → EDHOLD 11-06 09:18
PROVIDERS: Internal Medicine; Nurse Practitioner Family; ADMIT Internal Medicine; ATTEND Internal Medicine
DX: A41.9 Sepsis, unspecified organism (principal); I21.4 Non-ST elevation (NSTEMI) myocardial infarction; U07.1 COVID-19; J44.1 Chronic obstructive pulmonary disease with (acute) exacerbation; I10 Essential (primary) hypertension; E78.2 Mixed hyperlipidemia; F17.210 Nicotine dependence, cigarettes, uncomplicated; E11.42 Type 2 diabetes mellitus with diabetic polyneuropathy; E11.65 Type 2 diabetes mellitus with hyperglycemia; Z79.4 Long term (current) use of insulin; Z82.49 Family history of ischemic heart disease and other diseases of the circulatory system; Z79.899 Other long term (current) drug therapy; Z82.3 Family history of stroke; Z79.82 Long term (current) use of aspirin; Z79.1 Long term (current) use of non-steroidal anti-inflammatories (NSAID)

== ENCOUNTER → 2020-12-14 | Outpatient (CLI) | payer OTHER ==
[~2020-12-14] MED LIST changes: +ATORVASTATIN CA80 M1 PO; +DECADRON6 M1 PO; +FARXIGA5 M1 PO; +LOSARTAN POTASS25 M1 PO
== END | disposition home or self-care (01) ==
LOC: US 09:18
PROVIDERS: ATTEND Internal Medicine
DX: I65.23 Occlusion and stenosis of bilateral carotid arteries (principal)

== ENCOUNTER 2020-12-18 09:52 | Emergency (ER) | payer OTHER ==
[~2020-12-18] VITALS: Ht 170.1 cm; Wt 83.5 kg
[2020-12-18 10:31] LABS: BASO # 0.1 10*3/uL (0.0-0.1); BASO % 1.4 % (0.0-1.0); EOS # 0.2 10*3/uL (0.0-0.4); EOS % 2.9 % (1.0-4.0); HEMATOCRIT 46.7 % (37.0-47.0); LYMPH % 24.4 % (27.0-41.0); MEAN CELL VOLUME 91.4 fl (81.0-99.0); MEAN CORPUSCULAR HGB 30.1 pg (27.0-31.0); MONO # 0.7 10*3/uL (0.1-1.0); MONO % 8.6 % (3.0-9.0); NEUT % 62.2 % (47.0-73.0); PLATELET COUNT AUTOMATED 251 10*3/uL (130-400); RED BLOOD COUNT 5.11 10*6/uL (4.10-5.10); RED CELL DISTRI WIDTH 17.1 % (0-14.5)
[2020-12-18 10:45] LABS: ACT PARTIAL THROMBO TIME 24.5 SECONDS (20.0-32.1); INTERNATIONAL NORM RATIO 0.9 (2.0-3.5)
[2020-12-18 10:46] LABS: ALBUMIN 3.7 gm/dl (3.1-4.5); ALKALINE PHOSPHATASE 121 U/L (45-117); BUN 9 mg/dl (7-24); CHLORIDE 110 mmol/L (98-107); CREATININE 0.78 mg/dL (0.55-1.02); SGOT/AST 4 IU/L (3-35); SGPT/ALT 27 U/L (12-78); SODIUM 140 mmol/L (136-145)
== END 2020-12-18 11:32 | disposition home or self-care (01) ==
LOC: ED 09:52
PROVIDERS: Family Medicine
DX: I65.29 Occlusion and stenosis of unspecified carotid artery (principal); I10 Essential (primary) hypertension; E11.9 Type 2 diabetes mellitus without complications; F41.9 Anxiety disorder, unspecified; F32.9 Major depressive disorder, single episode, unspecified; J44.9 Chronic obstructive pulmonary disease, unspecified; Z88.8 Allergy status to other drugs, medicaments and biological substances; Z79.899 Other long term (current) drug therapy; Z79.82 Long term (current) use of aspirin; Z79.4 Long term (current) use of insulin; Z98.51 Tubal ligation status; Z98.61 Coronary angioplasty status

== ENCOUNTER → 2020-12-22 | Outpatient (CLI) | payer OTHER | END | disposition home or self-care (01) | LOC: CT 09:42 | PROVIDERS: ATTEND Internal Medicine | DX: I65.21 Occlusion and stenosis of right carotid artery (principal) ==

== ENCOUNTER → 2021-06-05 | Outpatient (CLI) | payer OTHER ==
[2021-06-06 08:08] LABS: RHEUMATOID ARTHRITIS FACTOR 10.1 IU/mL (0.0-13.9)
[2021-06-06 14:08] LABS: ANTI-DSDNA ANTIBODIES <1 IU/mL (0-9)
== END | disposition home or self-care (01) ==
LOC: LAB 15:20
PROVIDERS: ATTEND Internal Medicine
DX: M25.712 Osteophyte, left shoulder (principal); M19.032 Primary osteoarthritis, left wrist; M19.031 Primary osteoarthritis, right wrist; R79.82 Elevated C-reactive protein (CRP); R70.0 Elevated erythrocyte sedimentation rate; R76.0 Raised antibody titer; Z31.82 Encounter for Rh incompatibility status

== ENCOUNTER → 2021-09-05 | Outpatient (CLI) | payer OTHER | END | disposition home or self-care (01) | LOC: MRI 13:43 | PROVIDERS: ATTEND Psychiatry & Neurology Neurology | DX: M43.13 Spondylolisthesis, cervicothoracic region (principal); I65.21 Occlusion and stenosis of right carotid artery; M50.323 Other cervical disc degeneration at C6-C7 level; M50.322 Other cervical disc degeneration at C5-C6 level; M48.02 Spinal stenosis, cervical region; R29.898 Other symptoms and signs involving the musculoskeletal system; R29.2 Abnormal reflex; M62.838 Other muscle spasm; I67.82 Cerebral ischemia; G93.89 Other specified disorders of brain ==

== ENCOUNTER → 2021-12-31 | Outpatient (CLI) | payer OTHER ==
[2021-12-31 13:13] LABS: BASO # 0.1 10*3/uL (0.0-0.1); BASO % 0.8 % (0.0-1.0); EOS # 0.3 10*3/uL (0.0-0.4); EOS % 2.9 % (1.0-4.0); HEMATOCRIT 47.3 % (37.0-47.0); LYMPH # 3.1 10*3/uL (1.3-4.4); LYMPH % 31.6 % (27.0-41.0); MEAN CELL VOLUME 90.1 fl (81.0-99.0); MEAN CORPUSCULAR HGB 29.7 pg (27.0-31.0); MEAN PLATELET VOLUME 10.1 fl (9.6-12.3); MONO # 0.7 10*3/uL (0.1-1.0); MONO % 6.7 % (3.0-9.0); NEUT # 5.5 10*3/uL (2.3-7.9); NEUT % 57.6 % (47.0-73.0); PLATELET COUNT AUTOMATED 267 10*3/uL (130-400); RED BLOOD COUNT 5.25 10*6/uL (4.10-5.10); RED CELL DISTRI WIDTH 14.5 % (0-14.5); WHITE BLOOD COUNT 9.6 10*3/uL (4.8-10.8)
[2021-12-31 14:09] LABS: ALBUMIN 3.9 gm/dl (3.1-4.5); BUN 8 mg/dl (7-24); CHLORIDE 104 mmol/L (98-107); CHOLESTEROL 233 mg/dL (<200); CREATININE 0.91 mg/dL (0.55-1.02); POTASSIUM 3.8 mmol/L (3.5-5.1); SGOT/AST 11 IU/L (3-35); SGPT/ALT 26 U/L (12-78); SODIUM 136 mmol/L (136-145); T3 UPTAKE 36 % (31-39); TOTAL PROTEIN 7.5 gm/dL (6.4-8.2); TRIGLYCERIDES 326 mg/dl (<150)
[2021-12-31 14:15] LABS: ALKALINE PHOSPHATASE 128 U/L (45-117); LDL CHOLESTEROL 129 mg/dL (9-159)
[2021-12-31 14:50] LABS: VITAMIN D, 25-HYDROXY 20.3 ng/mL (30-100)
== END | disposition home or self-care (01) ==
LOC: LAB 12:50
PROVIDERS: ATTEND Internal Medicine
DX: I10 Essential (primary) hypertension (principal); E11.65 Type 2 diabetes mellitus with hyperglycemia; Z13.89 Encounter for screening for other disorder; E78.2 Mixed hyperlipidemia; E55.9 Vitamin D deficiency, unspecified; Z79.891 Long term (current) use of opiate analgesic

== ENCOUNTER → 2022-03-04 | Outpatient (CLI) | payer OTHER | END | disposition home or self-care (01) | LOC: RAD 13:52 | PROVIDERS: ATTEND Internal Medicine | DX: M85.88 Other specified disorders of bone density and structure, other site (principal) ==

== ENCOUNTER → 2022-03-06 | Outpatient (CLI) | payer OTHER | END | disposition home or self-care (01) | LOC: MAMMO 00:11 | PROVIDERS: ATTEND Internal Medicine | DX: Z12.31 Encounter for screening mammogram for malignant neoplasm of breast (principal) ==

== ENCOUNTER → 2022-08-30 | Day surgery (SDC) | payer OTHER ==
[~2022-08-30] VITALS: Ht 170.1 cm; Wt 85.7 kg
[~2022-08-30] MED LIST changes: +JANUVIA100 MG PO; +PLAVIX75 M1 PO; +TRULICITY0.75 MG/0. SC
[2022-08-30 09:44] VITALS: BP 147/65
[2022-08-30 10:39] VITALS: BP 141/72
[2022-08-30 10:54] VITALS: BP 113/90
[2022-08-30 11:07] VITALS: BP 117/88
== END | disposition home or self-care (01) ==
LOC: SDC 08-27 08:00
PROVIDERS: ATTEND Surgery
DX: R19.5 Other fecal abnormalities (principal); D12.3 Benign neoplasm of transverse colon; K57.30 Diverticulosis of large intestine without perforation or abscess without bleeding; I10 Essential (primary) hypertension; F41.9 Anxiety disorder, unspecified; F32.9 Major depressive disorder, single episode, unspecified; J44.9 Chronic obstructive pulmonary disease, unspecified; F17.210 Nicotine dependence, cigarettes, uncomplicated; M19.90 Unspecified osteoarthritis, unspecified site; E11.40 Type 2 diabetes mellitus with diabetic neuropathy, unspecified; K21.9 Gastro-esophageal reflux disease without esophagitis; Z79.899 Other long term (current) drug therapy

== ENCOUNTER → 2023-01-01 | Outpatient (CLI) | payer OTHER | END | disposition home or self-care (01) | LOC: CARD 09:22 | PROVIDERS: ATTEND Internal Medicine | DX: I25.10 Atherosclerotic heart disease of native coronary artery without angina pectoris (principal); I10 Essential (primary) hypertension; R60.0 Localized edema ==

== ENCOUNTER → 2023-04-03 | Outpatient (CLI) | payer OTHER ==
[2023-04-03 11:05] LABS: BASO # 0.1 10*3/uL (0.0-0.1); BASO % 1.1 % (0.0-1.0); EOS # 0.4 10*3/uL (0.0-0.4); EOS % 4.4 % (1.0-4.0); HEMATOCRIT 46.4 % (37.0-47.0); LYMPH # 1.9 10*3/uL (1.3-4.4); LYMPH % 23.1 % (27.0-41.0); MEAN CELL VOLUME 91.3 fl (81.0-99.0); MEAN CORPUSCULAR HGB 30.1 pg (27.0-31.0); MEAN PLATELET VOLUME 10.8 fl (9.6-12.3); MONO # 0.6 10*3/uL (0.1-1.0); NEUT # 5.2 10*3/uL (2.3-7.9); PLATELET COUNT AUTOMATED 239 10*3/uL (130-400); RED BLOOD COUNT 5.08 10*6/uL (4.10-5.10); RED CELL DISTRI WIDTH 14.4 % (0-14.5)
[2023-04-03 11:30] LABS: ALKALINE PHOSPHATASE 119 U/L (46-116); BUN 10 mg/dl (9-23); CHLORIDE 105 mmol/L (98-107); CHOLESTEROL 186 mg/dL (<200); LDL CHOLESTEROL 113 mg/dL (9-159); POTASSIUM 4.2 mmol/L (3.4-5.1); SGPT/ALT 15 U/L (10-49); THYROID STIM HORMONE (HS) 0.884 uIU/ml (0.550-4.780); TRIGLYCERIDES 167 mg/dl (<150)
[2023-04-03 11:31] LABS: VITAMIN D, 25-HYDROXY 34.4 ng/mL (30-100)
== END | disposition home or self-care (01) ==
LOC: LAB 10:11
PROVIDERS: ATTEND Internal Medicine
DX: Z13.0 Encounter for screening for diseases of the blood and blood-forming organs and certain disorders involving the immune mechanism (principal); Z13.1 Encounter for screening for diabetes mellitus; Z13.21 Encounter for screening for nutritional disorder; Z13.220 Encounter for screening for lipoid disorders; Z13.29 Encounter for screening for other suspected endocrine disorder; Z13.6 Encounter for screening for cardiovascular disorders; Z13.89 Encounter for screening for other disorder; Z13.9 Encounter for screening, unspecified; I10 Essential (primary) hypertension; E03.9 Hypothyroidism, unspecified; E11.9 Type 2 diabetes mellitus without complications; E55.9 Vitamin D deficiency, unspecified

== ENCOUNTER → 2023-06-11 | Outpatient (CLI) | payer OTHER | END | disposition home or self-care (01) | LOC: US 05-08 14:30 | PROVIDERS: ATTEND Internal Medicine | DX: I65.23 Occlusion and stenosis of bilateral carotid arteries (principal); R42 Dizziness and giddiness ==

== ENCOUNTER → 2023-09-17 | Outpatient (CLI) | payer OTHER | END | disposition home or self-care (01) | LOC: MAMMO 10:42 | PROVIDERS: ATTEND Internal Medicine | DX: Z12.31 Encounter for screening mammogram for malignant neoplasm of breast (principal) ==

== ENCOUNTER → 2023-10-09 | Outpatient (CLI) | payer OTHER | END | disposition home or self-care (01) | LOC: RAD 09:45 | PROVIDERS: ATTEND Chiropractor | DX: M47.817 Spondylosis without myelopathy or radiculopathy, lumbosacral region (principal); I70.0 Atherosclerosis of aorta; I70.8 Atherosclerosis of other arteries; M48.07 Spinal stenosis, lumbosacral region ==

== ENCOUNTER → 2024-02-09 | Outpatient (CLI) | payer OTHER | END | disposition home or self-care (01) | LOC: CARD 10:13 | PROVIDERS: ATTEND Internal Medicine | DX: R06.02 Shortness of breath (principal) ==

== ENCOUNTER 2024-02-17 23:13 | Emergency (ER) | payer OTHER ==
[~2024-02-17] VITALS: Ht 165.1 cm; Wt 97.5 kg
[2024-02-17] MEDS ORDERED: DIAZEPAM 10 MG/2 ML SYR IV ONE (23:25)
[2024-02-17 23:49] LABS: BASO # 0.2 10*3/uL (0.0-0.1); EOS # 0.4 10*3/uL (0.0-0.4); EOS % 2.6 % (1.0-4.0); HEMATOCRIT 52.4 % (37.0-47.0); LYMPH # 2.2 10*3/uL (1.3-4.4); LYMPH % 14.4 % (27.0-41.0); MEAN CELL VOLUME 94.9 fl (81.0-99.0); MEAN CORPUSCULAR HGB 30.1 pg (27.0-31.0); MEAN CORPUSCULAR HGB CONC 31.7 g/dl (33.0-37.0); MEAN PLATELET VOLUME 10.2 fl (9.6-12.3); MONO # 0.8 10*3/uL (0.1-1.0); MONO % 4.9 % (3.0-9.0); NEUT # 11.7 10*3/uL (2.3-7.9); NEUT % 76.1 % (47.0-73.0); PLATELET COUNT AUTOMATED 274 10*3/uL (130-400); RED BLOOD COUNT 5.52 10*6/uL (4.10-5.10); RED CELL DISTRI WIDTH 14.1 % (0-14.5); WHITE BLOOD COUNT 15.3 10*3/uL (4.8-10.8)
[2024-02-17] MEDS ORDERED: BUMETANIDE 1 MG/4 ML VIAL IV ONE (23:55)
[2024-02-18 00:11] LABS: POTASSIUM 3.8 mmol/L (3.4-5.1)
[2024-02-18] MEDS ORDERED: TRAZODONE150 MG PO (00:16)
[2024-02-18] MEDS ORDERED: PREGABALIN100 MG PO (00:16)
[2024-02-18] MEDS ORDERED: ROPINIROLE HYDRO4 MG PO (00:18)
[2024-02-18] MEDS ORDERED: FUROSEMIDE40 MG PO (00:20)
[2024-02-18] MEDS ORDERED: POTASSIUM CHLOR8 ME1 PO (00:22)
[2024-02-18] MEDS ORDERED: GLIMEPIRIDE4 M1 PO (00:23)
[2024-02-18] MEDS ORDERED: LOPRESSOR50 M1 PO (00:24)
[2024-02-18] MEDS ORDERED: MOUNJARO7.5 MG/0.1 SQ (00:32)
[2024-02-18] MEDS ORDERED: INSULIN GL300 UNIT/1 SQ (00:34)
[2024-02-18] MEDS ORDERED: HYDROCODONE-AC1 EAC2 PO (00:35)
[2024-02-18] MEDS ORDERED: DIAZEPAM 10 MG/2 ML SYR IV ONE ×2 (00:40→02:35)
[2024-02-18] MEDS ORDERED: HEPARIN SODIUM 250 ML IV SCH (01:40)
[2024-02-18] MEDS ORDERED: Ropinirole Hydrochloride 1 MG TAB PO ONE ×2 (03:55→11:40)
[2024-02-18 09:30] LABS: ABG BASE EXCESS 2.1 mmol/L (-2.0-2.0); ARTERIAL BLOOD GAS PH 7.411 (7.35-7.45)
[2024-02-18] MEDS ORDERED: ASPIRIN 325 MG ENTERIC COATED PO ONE (11:35)
== END 2024-02-18 12:14 | disposition short-term general hospital (02) ==
LOC: ED 23:13
PROVIDERS: Emergency Medicine; Internal Medicine
DX: J96.00 Acute respiratory failure, unspecified whether with hypoxia or hypercapnia (principal); R79.89 Other specified abnormal findings of blood chemistry; E87.20 Acidosis, unspecified; D72.829 Elevated white blood cell count, unspecified; I21.4 Non-ST elevation (NSTEMI) myocardial infarction; D75.1 Secondary polycythemia; E11.65 Type 2 diabetes mellitus with hyperglycemia; E11.22 Type 2 diabetes mellitus with diabetic chronic kidney disease; I12.9 Hypertensive chronic kidney disease with stage 1 through stage 4 chronic kidney disease, or unspecified chronic kidney disease; N18.31 Chronic kidney disease, stage 3a; J44.9 Chronic obstructive pulmonary disease, unspecified; R00.0 Tachycardia, unspecified; F17.200 Nicotine dependence, unspecified, uncomplicated; Z88.8 Allergy status to other drugs, medicaments and biological substances; Z79.899 Other long term (current) drug therapy; Z79.4 Long term (current) use of insulin; Z79.82 Long term (current) use of aspirin; Z98.51 Tubal ligation status

== ENCOUNTER → 2024-03-03 | Outpatient (CLI) | payer OTHER ==
[~2024-03-03] MED LIST changes: +FUROSEMIDE40 MG PO; +GLIMEPIRIDE4 M1 PO; +HYDROCODONE-AC1 EAC2 PO; +INSULIN GL300 UNIT/1 SQ; +LOPRESSOR50 M1 PO; +MOUNJARO7.5 MG/0.1 SQ; +POTASSIUM CHLOR8 ME1 PO; +PREGABALIN100 MG PO; +ROPINIROLE HYDRO4 MG PO; +TRAZODONE150 MG PO
[2024-03-03 11:33] LABS: BUN 13 mg/dl (9-23); CHLORIDE 104 mmol/L (98-107); POTASSIUM 4.2 mmol/L (3.4-5.1)
== END | disposition home or self-care (01) ==
LOC: LAB 10:43
PROVIDERS: ATTEND Internal Medicine
DX: I10 Essential (primary) hypertension (principal)

== ENCOUNTER → 2024-09-04 | Outpatient (CLI) | payer OTHER ==
[~2024-09-04] MED LIST changes: +METHOCARBAMOL750 M1 PO; +PROTONIX TR40 M1 PO; +ROPINIROLE HYDRO3 MG PO
== END | disposition home or self-care (01) ==
LOC: US 09:00
PROVIDERS: ATTEND Internal Medicine Cardiovascular Disease
DX: R60.0 Localized edema (principal); D68.51 Activated protein C resistance